=== PATIENT | female | born 1980 | race American Indian/Alaskan Native ===

== ENCOUNTER 2016-06-30 14:22 | Emergency (ER) | payer SELFPAY ==
[2016-06-30 16:18] LABS: Basophils % (Auto) 0.4 % (0.0-1.8); Eosinophils % (Auto) 0.5 % (0.0-4.3); Hematocrit 42.6 % (30.3-42.9); Hemoglobin 13.7 gm/dl (10.1-14.3); Mean Corpuscular HGB Conc 32 % (30-34); Mean Corpuscular Hemoglobin 28 pg (28-32); Mean Corpuscular Volume 87 fl (79-97); Platelet Count 268 K/mm3 (140-440); Red Blood Count 4.89 M/mm3 (3.65-5.03); Red Cell Distribution Width 13.2 % (13.2-15.2); White Blood Count 11.9 K/mm3 (4.5-11.0)
[2016-06-30 16:52] LABS: INR 1.07 (0.87-1.13)
[2016-06-30 16:53] LABS: Partial Thromboplastin Time 29.7 Sec. (24.2-36.6)
[2016-06-30] MEDS ORDERED: NACL 0.9% 1000 ML 1,000 ML ONE (17:04)
[2016-06-30] MEDS ORDERED: NACL 0.9% 1000 ML IV ONE ×2 (17:05→19:47)
[2016-06-30 17:19] LABS: Creatine Kinase MB 6.7 ng/mL (0.0-4.0)
[2016-06-30 17:22] LABS: Anion Gap 21 mmol/L; BUN/Creatinine Ratio 8.33; Blood Urea Nitrogen 5 mg/dL (7-17); Calcium 9.4 mg/dL (8.4-10.2); Carbon Dioxide 25 mmol/L (22-30); Chloride 98.7 mmol/L (98-107); Creatine Kinase 615 units/L (30-135); Glucose 167 mg/dL (65-100); Potassium 4.5 mmol/L (3.6-5.0); Sodium 140 mmol/L (137-145)
--- NOTE | 2016-06-30 18:47 | Emergency Department Report ---
HPI - General Chief Complaint: Overdose Time Seen by Provider: 06/30/16 15:51 - HPI HPI: Chief complaint: Possible overdose on cocaine HPI: Patient states she did 5 g of cocaine over the last 2 days and is now feeling ill. Patient states she had chest pain earlier today and describes it as a tightness that lasted for 2-3 minutes with shortness of breath and sweating. Patient also complains of nausea vomiting and shaking all over. Patient denies headache. Patient has a history of diabetes and is noncompliant. Mode of arrival: [EMS] Source: [Patient] Began: 2 days Duration: Symptoms began today Context: See above Quality: Tightness Severity: Currently out of 10 Improved with: Nothing Worsened with: Nothing Associated signs and symptoms: See above ED Past Medical Hx - Past Medical History Previous Medical History?: Yes Hx Diabetes: Yes Additional medical history: depression - Social History Smoking Status: Unknown if ever smoked ED Review of Systems ROS: Stated complaint: POSS OVERDOSE Other details as noted in HPI ROS Constitutional: No fever ENT: No uri symptoms Cardiovascular: chest pain Respiratory: No sob or cough GI: No diarrhea : No dysuria frequency or urgency, Skin: No rash Neuro: No focal weakness or numbness Psych: No depression Raj/lymph: No edema Physical Exam - Physical Exam Vital Signs: Vital Signs 06/30/16 06/30/16 06/30/16 15:16 15:24 15:30 Temperature 98.2 F Pulse Rate 120 H 115 H Respiratory 27 H 17 17 Rate Blood Pressure 137/77 Blood Pressure 137/77 [Left] O2 Sat by Pulse 100 100 Oximetry Physical Exam: GENERAL: The patient is well-developed well-nourished. HEENT: Normocephalic. Atraumatic. Extraocular motions are intact. Patient has moist mucous membranes. NECK: Supple. No meningitic signs are noted. There is no adenopathy noted. CHEST/LUNGS: Clear to auscultation. There is no respiratory distress noted. HEART/CARDIOVASCULAR: Regular. There is no tachycardia. There is no gallop rub or murmur. ABDOMEN: Abdomen is soft, nontender. Patient has normal bowel sounds. There is no abdominal distention. SKIN: There is no rash. There is no edema. There is no diaphoresis. NEURO: The patient is awake, alert, and oriented. The patient is cooperative. The patient has no focal neurologic deficits. The patient has normal speech. MUSCULOSKELETAL: There is no tenderness or deformity. There is no limitation range of motion. There is no evidence of acute injury. ED Course Vital Signs 06/30/16 06/30/16 06/30/16 15:16 15:24 15:30 Temperature 98.2 F Pulse Rate 120 H 115 H Respiratory 27 H 17 17 Rate Blood Pressure 137/77 Blood Pressure 137/77 [Left] O2 Sat by Pulse 100 100 Oximetry ED Medical Decision Making - Lab Data Result diagrams: 06/30/16 16:08 06/30/16 16:28 Laboratory Tests 06/30/16 16:28 Total Creatine Kinase 615 H CK-MB (CK-2) 6.7 H CK-MB (CK-2) Rel Index 1.0 Troponin T < 0.010 - EKG Data -: EKG Interpreted by Me EKG shows normal: sinus rhythm Rate: normal (93) - EKG Data When compared to previous EKG there are: previous EKG unavailable Interpretation: other (atrial abnormality otherwise normal) - Radiology Data Radiology results: pending (chest x-ray is pending) Critical care attestation.: If time is entered above; I have spent that time in minutes in the direct care of this critically ill patient, excluding procedure time. ED Disposition Clinical Impression: Cocaine abuse Chest pain Qualifiers: Chest pain type: unspecified Qualified Code(s): R07.9 - Chest pain, unspecified Disposition: OP ADMITTED IP TO THIS HOSP Is pt being admited?: Yes Does the pt Need Aspirin: Yes Condition: Fair Instructions: Chest Pain (ED) Time of Disposition: 09:15 (admit to the hospitalist)
[2016-06-30 19:39] VITALS: BP 103/62
[2016-06-30] MEDS ORDERED: ASPIRIN PO ONE (20:54)
--- NOTE | 2016-06-30 21:28 | History and Physical Report ---
Medications and Allergies Allergies Allergy/AdvReac Type Severity Reaction Status Date / Time No Known Allergies Allergy Unverified 06/30/16 15:30 Exam - Constitutional Vitals: Temp Pulse Resp BP Pulse Ox 98.2 F 89 16 103/62 98 06/30/16 19:30 06/30/16 19:30 06/30/16 19:30 06/30/16 19:30 06/30/16 19:30 Results - Labs CBC & Chem 7: 06/30/16 16:08 06/30/16 16:28 Labs: Abnormal lab results 06/30/16 06/30/16 Range/Units 16:08 16:28 WBC 11.9 H (4.5-11.0) K/mm3 Ector % (Auto) 11.5 H (0.0-7.3) % Ector # 1.4 H (0.0-0.8) K/mm3 Seg Neutrophils # 8.0 H (1.8-7.7) K/mm3 BUN 5 L (7-17) mg/dL Creatinine 0.6 L (0.7-1.2) mg/dL Glucose 167 H (65-100) mg/dL Total Creatine Kinase 615 H (30-135) units/L CK-MB (CK-2) 6.7 H (0.0-4.0) ng/mL
--- NOTE | 2016-06-30 22:03 | Consultation ---
History of Present Illness - Reason for Consult Consult date: 06/30/16 Requesting physician: ANISHA LOU - History of Present Illness 36 YO Female with DM, Depression presents to ED for evaluation. Pt states that she experienced an episode of chest pain that lasted for 2-3 minutes after using cocaine. Pain was 10/10, substernal, nonradaiting, resolved after 2 minutes. Pain was associated with nausea, vomiting, and shaking all over. Pt seen and evaluated in ED. Past History Past Medical History: diabetes, other (depression) Past Surgical History: No surgical history, Other (reviewed) Social history: single. denies: smoking, alcohol abuse, prescription drug abuse Family history: diabetes, hypertension Medications and Allergies Allergies Allergy/AdvReac Type Severity Reaction Status Date / Time No Known Allergies Allergy Unverified 06/30/16 15:30 Review of Systems All systems: negative Cardiovascular: chest pain Exam - Constitutional Vitals: Temp Pulse Resp BP Pulse Ox 98.2 F 89 16 103/62 98 06/30/16 19:30 06/30/16 19:30 06/30/16 19:30 06/30/16 19:30 06/30/16 19:30 General appearance: Present: obese - EENT Eyes: Present: PERRL ENT: hearing intact, clear oral mucosa - Neck Neck: Present: supple, normal ROM - Respiratory Respiratory effort: normal Respiratory: bilateral: CTA - Cardiovascular Heart Sounds: Present: S1 & S2. Absent: rub, click - Extremities Extremities: pulses symmetrical, No edema Peripheral Pulses: within normal limits - Abdominal General gastrointestinal: Present: soft, non-tender, non-distended, normal bowel sounds Female genitourinary: Present: normal - Integumentary Integumentary: Present: clear, warm, dry - Musculoskeletal Musculoskeletal: gait normal, strength equal bilaterally - Psychiatric Psychiatric: appropriate mood/affect, intact judgment & insight - Neurologic Neurologic: CNII-XII intact, moves all extremities Results - Labs CBC & Chem 7: 06/30/16 16:08 06/30/16 16:28 Labs: Abnormal lab results 06/30/16 06/30/16 Range/Units 16:08 16:28 WBC 11.9 H (4.5-11.0) K/mm3 Grand % (Auto) 11.5 H (0.0-7.3) % Grand # 1.4 H (0.0-0.8) K/mm3 Seg Neutrophils # 8.0 H (1.8-7.7) K/mm3 BUN 5 L (7-17) mg/dL Creatinine 0.6 L (0.7-1.2) mg/dL Glucose 167 H (65-100) mg/dL Total Creatine Kinase 615 H (30-135) units/L CK-MB (CK-2) 6.7 H (0.0-4.0) ng/mL Assessment and Plan - Patient Problems (1) Chest pain Status: Acute Qualifiers: Chest pain type: unspecified Qualified Code(s): R07.9 - Chest pain, unspecified Plan to address problem: Cocaine Induced: D dimer, ekg, and cardiac enzymes normal. Pt discharged home. (2) Diabetes Status: Acute Plan to address problem: ADA diet, insulin, accu check (3) Cocaine abuse Status: Acute Plan to address problem: Pt counseled regarding abstinence from cocaine.
== END 2016-07-01 01:28 | disposition admitted as inpatient to this hospital (09) ==
LOC: ED 14:22
DX: R07.89 Other chest pain (principal); F14.10 Cocaine abuse, uncomplicated; E11.9 Type 2 diabetes mellitus without complications; F32.9 Major depressive disorder, single episode, unspecified
CPT/HCPCS: 36415; 80048; 82550; 82553; 84484; 85025; 85379; 85610; 85730; 93005; 93010; 96360; 96361; 99284; J7030